=== PATIENT | male | born 1990 | race Caucasian/White ===

== ENCOUNTER 2017-05-17 06:45 | Day surgery (SDC) | payer OTHER ==
[2017-05-17] VITALS (14 sets, daily range): BP systolic 122–140; BP diastolic 69–86; PULSE 15–82; RESP 10–27
[~2017-05-17] VITALS: Ht 182.9 cm; Wt 89.0 kg
[2017-05-17] MEDS ORDERED: LEVO175T6 PO (07:50)
[2017-05-17] MEDS ORDERED: LEVO200T6 PO (07:50)
--- NOTE | 2017-05-17 07:51 | HPN ---
Date/Time of Note Date/Time of Note DATE: 05/17/17 TIME: 07:51 Interval H&P Admission Note Pt. seen H&P reviewed: No system changes CAMERON NEVAREZ MD May 17, 2017 07:51
[2017-05-17] MEDS ORDERED: PROPOFOL 20 ML ONE (08:49)
[2017-05-17] MEDS ORDERED: LIDOCAINE 2% (SDV) 5 ML INJ ONE (08:49)
[2017-05-17] MEDS ORDERED: MIDAZOLAM 1 MG/ML 2 ML INJ ONE (08:49)
[2017-05-17] MEDS ORDERED: ONDANSETRON 4 MG INJ ONE (08:50)
[2017-05-17] MEDS ORDERED: DEXAMETHASONE 4 MG/ML 1 ML INJ ONE (08:50)
[2017-05-17] MEDS ORDERED: FAMOTIDINE 20 MG INJ ONE (08:50)
--- NOTE | 2017-05-17 10:12 | OPR ---
Date/Time of Note Date/Time of Note DATE: 05/17/17 TIME: 10:10 Operative Report Preoperative Diagnosis left wrist dorsal ganglion cyst Postoperative Diagnosis same Operation/Procedure Performed left wrist arthrotomy capsulotomy Surgeon: CAMERON NEVAREZ MD Anesthesia: general Estimated Blood Loss: 0 - 10 ml's Complications: None CAMERON ENVAREZ MD May 17, 2017 10:12
[2017-05-17] MEDS ORDERED: BUPIVACAINE 0.25%/EPI (SDV) 30 ML INJ ONE (10:20)
[2017-05-17] MEDS ORDERED: BUPIVACAINE 0.5%/EPI (SDV) 10 ML INJ ONE (10:21)
[2017-05-17] MEDS ORDERED: LIDOCAINE 2%/EPI 30 ML INJ ONE (10:21)
[2017-05-17] MEDS ORDERED: CEFAZOLIN 1 GM INJ ONE (10:45)
[2017-05-17] MEDS ORDERED: KETOROLAC 30 MG INJ ONE (11:09)
[2017-05-17] MEDS ORDERED: METOCLOPRAMIDE 10 MG INJ IV PRN (12:00)
[2017-05-17] MEDS ORDERED: FENTAnyl 50 MCG/ML VIAL IV PRN ×3 (12:00)
[2017-05-17] MEDS ORDERED: ONDANSETRON 4 MG INJ IV PRN (12:00)
[2017-05-17] MEDS ORDERED: HYDROmorphONE (0.2 MG/ML) 10ML SYG IV PRN ×3 (12:00)
--- NOTE | 2017-05-17 15:05 | OPR ---
DATE OF OPERATION: 05/17/2017 PREOPERATIVE DIAGNOSIS: Left wrist dorsal ganglion cyst. POSTOPERATIVE DIAGNOSIS: Left wrist dorsal ganglion cyst. OPERATION PERFORMED: Left wrist excision of ganglion, dorsal capsulotomy, and arthrotomy. SURGEON: Cameron Ferguson MD MANAGER CODING: Staff. RESEARCH ENVIRONMENTAL SCIENTIST: Janet Pitts CRNA. ANESTHESIA TECHNIQUE: General anesthetic by the anesthesiologist, local anesthetic by the surgeon. SURGICAL PAUSE: I examined the patient in the preop holding area. With a marking pen, I melvin in th e surgical incision. I showed the marked surgical incision to the patient. I confirmed the operati ve procedure and plan with the patient awake, present as witness. INFORMED CONSENT: At the time I scheduled the operative procedure, we discussed with the patient th e risks and hazards of surgery, mentioning OP mortality, wound infection, nerve injury, good result, bad result, and potential complications. At the end of that note, the patient signed a note confir jeana the informed consent conversation. DESCRIPTION OF PROCEDURE: The patient was taken to surgery, anesthetized as above, sterile prep and drape performed. The hand was exsanguinated with elevation. Pneumatic tourniquet inflated to 250 mmHg. A transverse incision was made over the dorsum of the wrist. The third and fourth dorsal compartmen t tendons were retracted in opposing directions. This exposed the dorsal wrist capsule. It was exc ised with cutting cautery. The edges cauterized with Bovie. The tourniquet was deflated, hemostasis was obtained, tourniquet reinflated, wound closed with inter rupted Vicryl Rapide suture. A bulky cotton Huerta type dressing was applied. DISCHARGE MEDICATIONS 1. Hydrocodone with acetaminophen. 2. Keflex. FOLLOWUP: Will be in my office in 1 week. Dictated By: CAMERON MIGUEL/NISHA Conf#: [id number] DID#: [id number]
== END 2017-05-17 13:32 | disposition home or self-care (01) ==
LOC: SDS 06:45
PROVIDERS: ATTEND Orthopaedic Surgery Hand Surgery
DX: M67.432 Ganglion, left wrist (principal); E03.9 Hypothyroidism, unspecified; J45.909 Unspecified asthma, uncomplicated
CPT/HCPCS: 25111; J0690; J1100; J1170; J1885; J2250; J2405; J3010